=== PATIENT | female | born 1990 | race Caucasian/White ===

== ENCOUNTER 2017-05-21 14:06 | Inpatient (IN) | payer OTHER ==
[2017-05-21] VITALS (28 sets, daily range): BP systolic 105–126; BP diastolic 49–77
[~2017-05-21] VITALS: Ht 167.6 cm; Wt 71.7 kg
--- NOTE | 2017-05-21 14:10 | NUR ---
Dr. Mansfield at bedside. RT at bedside.
--- NOTE | 2017-05-21 14:10 | NUR ---
26 F BIB FRIEND; ACCORDING TO FRIEND PT HAS BEEN TAKING UNKNOWN "MUSCLE RELAXERS" AND UNKNOWN AMOUNT AT UNKNOWN TIME; GCS=1; ER MD GARNICA BY BEDSIDE, RT KADE LOVELACE EMT, SARAN RN, AND MINA FIGUEREDO BY BEDSIDE.
--- NOTE | 2017-05-21 14:10 | NUR ---
Patient to bed 11.
--- NOTE | 2017-05-21 14:15 | NUR ---
CALLED TO BEDSIDE OVERDOSE AND INTUBATION Devin CORNEJO RCP AND MARIJA NESSP ATTENDING
--- NOTE | 2017-05-21 14:17 | NUR ---
DR. LARRY GARNICA ATTENDING PATIENT INTUBATED AT THIS TIME PLACEMENT CONFIRMED BY ED/MD VIA AUSCULTATION AT PULMONARY GEE AND ABDOMEN CXR TO FOLLOW FOR DIAGNOSTIC CONFIRMATION
[2017-05-21] MEDS ORDERED: ETOMIDATE 20 MG/10 ML VIAL IVP ONE (14:25)
[2017-05-21] MEDS ORDERED: NACL 0.9% 1,000 ML IV ONE (14:25)
[2017-05-21] MEDS ORDERED: PROPOFOL 200 MG/20 ML VIAL IV ONE ×3 (14:55→17:50)
[2017-05-21 15:03] LABS: BASOPHILS # (AUTO) 0.3 K/uL (0.00-0.22); BASOPHILS % (AUTO) 2.6 % (0.0-2.0); EOSINOPHILS % (AUTO) 0.2 % (0.0-4.0); HEMATOCRIT 38.3 % (36-48); HEMOGLOBIN 12.6 g/dL (12.0-16.0); LYMPHOCYTES # (AUTO) 0.8 K/uL (2.5-16.5); MEAN CORPUSCULAR HEMOGLOBIN 28 pg (27-31); MEAN CORPUSCULAR HGB CONC 33 g/dL (33-37); MEAN CORPUSCULAR VOLUME 84 fL (80-94); MONOCYTES # (AUTO) 0.2 K/uL (0.8-1.0); MONOCYTES % (AUTO) 1.8 % (1.7-9.3); NEUTROPHILS # (AUTO) 9.6 K/uL (1.8-7.7); NEUTROPHILS % (AUTO) 88.4 % (42.2-75.2); PLATELET COUNT (AUTO) 287 K/uL (140-450); RED BLOOD CELL COUNT(AUTO) 4.56 MIL/uL (4.20-5.40); RED CELL DISTRIBUTION WIDTH 12.4 % (11.6-13.7); WHITE BLOOD COUNT (AUTO) 10.9 K/uL (4.8-10.8)
[2017-05-21 15:17] LABS: ANION GAP 10.4 (8-16); CARBON DIOXIDE 27.6 mmol/L (21-32); CHLORIDE 107 mmol/L (98-107); CREATININE 0.8 mg/dL (0.6-1.3); GFR ARICAN-AMERICAN 112 mL/min (>90); GLUCOSE 148 mg/dL (74-106); SODIUM SERUM 141 mmol/L (136-145); UREA NITROGEN, BLOOD 18 mg/dL (7-18)
[2017-05-21] MEDS ORDERED: PROPOFOL 1000 MG/100 ML PREMIX 100 ML IV ONE ×2 (15:21→17:50)
[2017-05-21 15:24] LABS: ACETAMINOPHEN < 0.5 ug/ml (10-30); ALBUMIN 3.5 g/dL (3.4-5.0); ASPARTATE AMINOTRANSFERASE 26 U/L (15-37); SALICYLATE < 2.8 mg/dL (2.8-20.0); TOTAL BILIRUBIN 0.4 mg/dL (0.0-1.0)
--- NOTE | 2017-05-21 15:25 | NUR ---
RAFI ORO GAVE VERAL ORDER TO OK CHANGE FROM NG TO OG
--- NOTE | 2017-05-21 15:28 | NUR ---
ABG RESULTS GIVEN TO .FIO2 DECREASED TO 35% PER ABG RESULTS.
--- NOTE | 2017-05-21 15:30 | NUR ---
propofol AT 10 MCG/KG/MIN; RASS=-3; NAD; WILL CONTINUE TO MONTIOR
--- NOTE | 2017-05-21 15:35 | NUR ---
RT PAGED TO TRANSPORT PT; PER ESTRADA PT WILL BE AVAIBABLE IN 30 MINS; ER MD GARNICA AWARE
--- NOTE | 2017-05-21 15:53 | NUR ---
PROPOFOL INFUSION WELL; RASS=-3; NAD; WILL CONTINUE TO MONTIOR
--- NOTE | 2017-05-21 16:00 | NUR ---
PROPOFOL INFUSION WELL; RASS=-3; NAD; WILL CONTINUE TO MONTIOR
--- NOTE | 2017-05-21 16:01 | NUR ---
RT PAGED TO TRANSPORT PT; PER ESTRADA PT WILL BE AVAIBABLE IN 30 MINS; ER MD GARNICA AWARE
--- NOTE | 2017-05-21 16:03 | NUR ---
PROPOFOL INFUSION WELL; RASS=-2; NAD; WILL CONTINUE TO MONTIOR
[2017-05-21 16:05] LABS: BARBITURATE, URINE NEG. ng/ml (NEG <=200); BENZODIAZEPINE, URINE NEG. ng/mL (NEG <=200); CANNABINOID, URINE NEG. ng/mL (NEG <=50); COCAINE, URINE NEG. ng/mL (NEG <=300); OPIATE, URINE NEG. ng/mL (NEG <=2000); PHENCYCLIDINE SCREEN,URINE NEG. ng/mL (NEG <=25)
--- NOTE | 2017-05-21 16:15 | NUR ---
PROPOFOL INFUSION WELL; RASS=-2; NAD; WILL CONTINUE TO MONTIOR
--- NOTE | 2017-05-21 16:15 | NUR ---
Note undone in [facility] - 05/21/17 at 180 by GISELLE PROPOFOL INFUSION WELL; RASS=-3; NAD; WILL CONTINUE TO RELLIOR Addendum: 05/21/17 at 180 by GISELLE Amendment undone in [facility] - 05/21/17 at 180 by MEDCE PROPOFOL INFUSION WELL; RASS=-2; NAD; WILL CONTINUE TO RELLIOR
--- NOTE | 2017-05-21 16:16 | NUR ---
XRAY BY BEDSIDE
--- NOTE | 2017-05-21 16:19 | NUR ---
propofol AT 15 MCG/KG/MIN; RASS=-3; NAD; WILL CONTINUE TO MONTIOR
--- NOTE | 2017-05-21 16:20 | NUR ---
OG TUBE REMOVED
--- NOTE | 2017-05-21 16:28 | NUR ---
PATIENT TRANSFERRED TO RADILOGY FOR CT SCAN OF HEAD REMOVED FORM VENTILATOR PLACED ON SUPPLEMENTAL OXYGENT AT 15 LPM VIA AMBU BAG TO PORTEX INLINE SUCTION CATHETER/ENDOTRACHEAL TUBE AMBU BAG DEPRESSED EVERY 6 SECONDS TOLERATED WELL WITHOUT INCIDENT SATURATION 98-100% HR 57-60
--- NOTE | 2017-05-21 16:29 | NUR ---
Patient taken to CT via gurney per tech/RT/pt nurse.
--- NOTE | 2017-05-21 16:38 | NUR ---
PATIENT TRANSFERRED BACK TO ICU-11 SUPPLEMENTAL OXYGEN AT 15LPM TO AMBU BAG VIA PORTEX INLINE SUCTION CATHTER/ENDOTRACHEAL TUBE TOLERATED WELL WITHOUT INCIDENT SATURATION 98-100% HR 58-60
--- NOTE | 2017-05-21 16:38 | NUR ---
Patient back from CT via gurney.
--- NOTE | 2017-05-21 16:40 | NUR ---
OG TUBE REMOVED; ATTEMPTED TO PULL BACK DUE TO RESULTS OF XRAY PLACEMENT CONFIRMATION; PT VOMITTED APPROX 30 CC OF BROWNISH EMSIS; ER MD AWARE AND NOTIFIED
--- NOTE | 2017-05-21 17:02 | NUR ---
SEDATED TOLERATING VENTILATORY SUPPORT WITHOUT INCIDENT GOOD CHEAT RISE AIRWAY PATENT
[2017-05-21] MEDS ORDERED: INTUBATION KIT MC ONE (17:20)
--- NOTE | 2017-05-21 17:30 | NUR ---
PROPOFOL INFUSION WELL; RASS=-3; NAD; WILL CONTINUE TO MONTIOR
--- NOTE | 2017-05-21 17:45 | NUR ---
Patient will be admitted to [facility]. Admited to ICU. Will go to room ICU 1. Belongings list completed. Report to Mili FIGUEREDO.
--- NOTE | 2017-05-21 18:30 | NUR ---
PT RECEIVED FRO ER WITH ETT IN PLACE WITH VENTILATOR SETTING AC MODE FIO2 35 RR 16 TV 500 PEEP 5. SKIN INTACT, WARM AND DRY TO TOUCH. PUPILS SLIGHTLY REACTIVE TO LIGHT. LUNGS SOUND CLEAR ON AUSCULTATION. REGULAR APICAL PULSE. PERIPHERAL LINE ON LEFT AND RIGHT AC INTACT. PROPOFOL RUNNING AT 20 MCG/KG/MIN VIA IV PUMP. ABDOMEN ROUND, SOFT AND NONTENDER. HYPOACTIVE BOWEL SOUNDS ON AUSCULTATION. BURGOS'S CATH IN PLACE DRAINING YELLOW URINE VIA GRAVITY. CONTINUE TO MONITOR.
--- NOTE | 2017-05-21 18:30 | NUR ---
TRANSFERRED PT TO ICU 1 WITH NO INCIDENCE WITH MINA FIGUEREDO
[2017-05-21] MEDS ORDERED: LORazepam 2 MG/ML VIAL IVP PRN (19:00)
[2017-05-21] MEDS ORDERED: ONDANSETRON 4 MG/2 ML VIAL IVP PRN (19:00)
[2017-05-21] MEDS ORDERED: HYDROmorphone 1 MG/ML AMP IVP PRN (19:00)
[2017-05-21] MEDS ORDERED: PROPOFOL 200 MG/20 ML VIAL IV SCH (19:00)
[2017-05-21] MEDS ORDERED: ALBUTEROL 0.083% 2.5 MG/3 ML NEBU INH PRN (19:00)
--- NOTE | 2017-05-21 19:00 | NUR ---
REPORT RECEIVED FROM BEA PEÑA. RECEIVED PT WITH PROPOFOL DRIP AT 20MCG/KG/MIN. AFEBRILE. SINUS BRADYCARDIA ON MONITOR. ETT TO VENT. AC/VC FIO2 35, RR 16, TV 500, AND PEEP 5. PERIPHERAL IV RIGHT AC 20G AND LEFT AC 20G. BOTH FLUSHED AND PATENT. BURGOS CATHETER IN PLACE DRAINING BY GRAVITY. URINE YELLOW AND CLEAR. NO ODOR NOTED. NO GRIMACING OR GUARDING NOTED. HOB KEPT AT 30 DEGREES. ALL SAFETY PRECAUTIONS IN PLACE. BED AT LOW POSITION. WILL CONTINUE TO MONITOR PT.
--- NOTE | 2017-05-21 19:20 | NUR ---
NO CHANGE IN LOC. GAVE REPORT TO ENVELOPE STUFFER FOR CONTINUITY OF CARE.
[2017-05-21] MEDS ORDERED: MIDAZOLAM 2 MG/2 ML VIAL IV PRN (19:55)
[2017-05-21] MEDS: DEXT 5% / NACL 0.45% 1,000 ML IV SCH (20:09)
--- NOTE | 2017-05-21 20:20 | NUR ---
RECEIVED NEW ORDER FROM DR. MCCALLUM. WILL FOLLOW UP.
--- NOTE | 2017-05-21 20:30 | NUR ---
OGT INSERTED. 14FR TO DRAIN BY GRAVITY PER MD ORDER. XRAY TO CONFIRM PLACEMENT ORDERED.
--- NOTE | 2017-05-21 20:31 | NUR ---
PT STABLE ON VENT SUPPORT AT DOCUMENTED SETTINGS, SXN'D SCANT CLEAR SECRETIONS, NO RESP DISTRESS OR SOB NOTED, 7.5 ETT SECURED AT 21 CM AT THE LIPS, CONFIRMED PLACEMENT BY XRAY PER DR CHOWDHURY, ALARMS SET AND AUDIBLE, VENT PLUGGED INTO RED OUTLET, BAG MASK AT BEDSIDE, WILL CONTINUE TO MONITOR.
--- NOTE | 2017-05-21 21:00 | NUR ---
XRAY TAKEN. WILL FOLLOW-UP.
--- NOTE | 2017-05-21 22:46 | NUR ---
SPOKE TO DR. MCCALLUM AND NOTIFIED OGT PLACEMENT RESULT. DR. MCCALLUM SAID TO DO ANOTHER XRAY IN AM TO RECHECK OGT PLACEMENT. 40ML OF DARK TEA-COLORED GASTRIC CONTENT ASPIRATED, DR. MCCALLUM AWARE. DR. MCCALLUM SAID TO CONTINUE OGT DRAIN TO GRAVITY. WILL CONTINUE TO MONITOR. Addendum: 05/21/17 at 2253 by Raghu Overton RN OGT ADVANCE FURTHER. OGT PLACEMENT TO BE CONFIRMED IN AM XRAY ORDERED.
[2017-05-22] VITALS (48 sets, daily range): BP systolic 93–136; BP diastolic 55–80
--- NOTE | 2017-05-22 00:37 | NUR ---
PT TURNED AND REPOSITIONED. TOLERATED WELL. OGT DRAINING TEA-COLORED GASTRIC CONTENT. D5W 0.45 NS RUNNING AT 100ML/HR TO RIGHT AC AND PROPOFOL DRIP TO LEFT AC. VITAL SIGNS STABLE AT THIS TIME. PUPILS 4MM BILATERALLY. EQUAL AND REACTIVE TO LIGHT. ALL SAFETY PRECAUTIONS IN PLACE. WILL CALL LIGHT WITHIN REACH. WILL CONTINUE TO MONITOR PT.
[2017-05-22] MEDS: PROPOFOL 1000 MG/100 ML PREMIX 100 ML IV PRN ×2 (00:59→05:11)
--- NOTE | 2017-05-22 02:49 | NUR ---
VS STABLE AT THIS TIME. NO CHANGE IN CONDITION NOTED. NO SIGNS OF DISTRESS NOTED. RASS -4. HOB ELEVATED AT 30 DEGREES. BURGOS CATHETER DRAINING WELL. ON PROPOFOL DRIP. D5W 0.45 NS RUNNING AT 100ML/HR. ALL SAFETY PRECAUTIONS IN PLACE. BED AT LOW POSITION. CALL LIGHT WITHIN REACH. WILL CONTINUE TO MONITOR PT.
--- NOTE | 2017-05-22 04:30 | NUR ---
MORNING CARE PROVIDED TO PT. LINENS CHANGED. PT TOLERATED WELL. NO SIGNS OF DISTRESS NOTED. RASS -3. PROPOFOL TITRATED TO MAINTAIN GOAL RASS -4. HOB AT 30 DEGREES. ALL SAFETY PRECAUTIONS IN PLACE. CALL LIGHT WITHIN REACH. WILL CONTINUE TO MONITOR PT.
[2017-05-22] MEDS: DEXT 5% / NACL 0.45% 1,000 ML IV SCH ×2 (05:12→14:51)
[2017-05-22 05:13] LABS: BASOPHILS # (AUTO) 0.2 K/uL (0.00-0.22); BASOPHILS % (AUTO) 1.3 % (0.0-2.0); EOSINOPHILS # (AUTO) 0.1 K/uL (0-0.4); EOSINOPHILS % (AUTO) 0.7 % (0.0-4.0); HEMATOCRIT 38.9 % (36-48); HEMOGLOBIN 12.7 g/dL (12.0-16.0); LYMPHOCYTES # (AUTO) 1.6 K/uL (2.5-16.5); LYMPHOCYTES % (AUTO) 12.8 % (20.5-51.1); MEAN CORPUSCULAR HEMOGLOBIN 27 pg (27-31); MEAN CORPUSCULAR HGB CONC 33 g/dL (33-37); MEAN CORPUSCULAR VOLUME 83 fL (80-94); MONOCYTES # (AUTO) 0.8 K/uL (0.8-1.0); MONOCYTES % (AUTO) 6.2 % (1.7-9.3); NEUTROPHILS # (AUTO) 9.8 K/uL (1.8-7.7); PLATELET COUNT (AUTO) 338 K/uL (140-450); RED BLOOD CELL COUNT(AUTO) 4.69 MIL/uL (4.20-5.40); RED CELL DISTRIBUTION WIDTH 12.2 % (11.6-13.7); WHITE BLOOD COUNT (AUTO) 12.5 K/uL (4.8-10.8)
--- NOTE | 2017-05-22 05:22 | NUR ---
FIO2 DECREASED TO 28% BY RT. VS STABLE AT THIS TIME. NO SIGNS OF DISTRESS NOTED. NO CHANGE IN CONDITION. WILL CONTINUE TO MONITOR.
--- NOTE | 2017-05-22 06:25 | NUR ---
REC'D PT ON CARESCAPE VENT SETTINGS AC 16 VT 500 PEEP 5 FIO2 35% ALARMS ON AND FUNCTIONING PROPERLY, AMBU BAG AT SIDE OF VENT AND VENTILATOR IS PLUGGED INTO RED OUTLET, SXN PT SMALL AMT OF CLEAR SECRETIONS, B\S ARE CLEAR BILATERALLY, PT ORALLY INTUBATED WITH 7.5 ET TUBE SECURED WITH ANCHOR FAST AT 21 CM AND CUFF PRESSURE IS 21 CM H20 AND SKIN INTEGRITY IS INTACT
--- NOTE | 2017-05-22 06:35 | NUR ---
X-RAY TAKEN AT BEDSIDE. WILL FOLLOW-UP WITH RESULTS.
--- NOTE | 2017-05-22 07:10 | NUR ---
REPORT GIVEN TO BEA GIBBONS FOR CONTINUITY OF CARE. PT ON STABLE CONDITION.
--- NOTE | 2017-05-22 07:10 | NUR ---
RECEIVED A REPORT FROM SIGNAL OPERATOR LINGUIST RN. PT SEDATED AND UNRESPONSIVE TO VOICE. HER EYES CLOSED AND APPLIED BILATERAL MITTENS FOR SAFETY PRECAUTION. FLACC 0 AND NO S/SX OF RESPIRATORY DISTRESS NOTED. ETT TO VENT AND SETTING AT FiO2 28, TV 500, RR 16, PEEP 5. ORAL TUBE IN PLACE FOR INTERMITTENT SUCTIONING. SKIN WARM TO TOUCH. ON CONTINUOUS DRIP WITH PROPOFOL ORDERED PER PROTOCOL. PERIPHERAL IV LINE TO RT AC AND LT AC, PATENT AND INTACT. BURGOS CATHETER DRAINING CLEAR YELLOW URINE. BED IN LOW POSITION, CALL LIGHT WITHIN REACH. WILL CONTINUE TO MONITOR.
--- NOTE | 2017-05-22 08:01 | NUR ---
PAGED DR. PHILLIPS REGARDING CXR RESULT AND WAITING FOR CALLBACK
--- NOTE | 2017-05-22 08:05 | NUR ---
RECEIVED CALLBACK FROM DR. PHILLIPS AND CXR RESULT WAS NOTIFIED. PER DR. PHILLIPS, STOP PROPOFOL NOW, DO NOT TITRATE AND IF PT IS STABLE AND NOT AGITATED, IT IS OKAY TO WEANING VENTILATOR. WILL FOLLOW UP ON ORDERS
--- NOTE | 2017-05-22 08:07 | NUR ---
STOP PROPOFOL ORDERED AND RT WAS NOTIFIED.
--- NOTE | 2017-05-22 08:36 | NUR ---
PT IS AWAKE AND VERY AGITATED WITHOUT PROPOFOL. PAGED DR. PHILLIPS AND WAITING FOR CALLBACK.
--- NOTE | 2017-05-22 08:43 | NUR ---
DR. PHILLIPS CALLED BACK AND WAS NOTIFIED OF PT'S CONDITION. PER DR. PHILLIPS, CONTINUE PROPOFOL NOW AND WILL FOLLOW UP FOR THE WEANING LATER.
[2017-05-22] MEDS: ENOXAPARIN 40 MG/0.4 ML SYR SUBQ SCH (08:56)
[2017-05-22] MEDS: PANTOPRAZOLE 40 MG INJ VIAL IVP SCH (08:57)
--- NOTE | 2017-05-22 09:00 | NUR ---
STOP PROPOFOL AT THIS TIME. WILL CONTINUE TO MONITOR
--- NOTE | 2017-05-22 09:06 | NUR ---
VENT CHECK, NO SXN REQUIRED AT THIS TIME, DR. PHILLIPS ORDER TO HAVE PT EXTUBATE ONCE VACATION SEDATION IS DONE, PT IS OFF DIPRIVAN WAITING FOR PT TO WAKE UP
--- NOTE | 2017-05-22 09:22 | NUR ---
PT EXTUBATED AND PLACED ON 3LNC
--- NOTE | 2017-05-22 09:28 | NUR ---
PT TOLERATED MEDICATIONS WELL. CALM AND ABLE TO VERBALIZE NEEDS, NO AGITATION AT THIS TIME. NO S/SX OF ACUTE RESPIRATORY DISTRESS AND ON O2 3L/M VIA N/C. PT'S MOTHER AND SISTER AT BEDSIDE. WILL CONTINUE TO MONITOR
--- NOTE | 2017-05-22 09:50 | NUR ---
DR. PHILLIPS IN TO SEE PT. WILL FOLLOW UP ON ORDERS
--- NOTE | 2017-05-22 10:06 | NUR ---
PATIENT HAS BEEN SCREENED AND CATEGORIZED MODERATE NUTRITION RISK. PATIENT WILL BE SEEN WITHIN 3-5 DAYS OF ADMISSION. 05/24/17-05/26/[address] Addendum: 05/22/17 at [address] D/T FNS CONSULT RECEIVED ON 05/22/17 PT HAS BEEN RESCREENED AND RECATEGORIZED HIGH NUTRITION RISK. PT WILL BE SEEN WITHIN 1-2 DAYS OF ADMISSION 05/22/17 - 05/23/[address]
--- NOTE | 2017-05-22 11:24 | NUR ---
DR. AMBRIZ IN TO SEE PT. WILL FOLLOW UP ON ORDERS
--- NOTE | 2017-05-22 13:00 | NUR ---
PT ALERT AND ABLE TO FOLLOW SIMPLE COMMANDS WITH SLOW RESPOND AND VERBALIZES NEEDS. DENIES ANY PAIN OR DISCOMFORT AT THIS TIME. WILL CONTINUE TO MONITOR.
--- NOTE | 2017-05-22 13:23 | NUR ---
CM NOTE INITIAL REVIEW FAXED TO [facility] [phone] JACK HARTLEY PH# [phone] JACK TRAN PH# [phone] AND TO [facility] [phone] SILVIO [phone]
[2017-05-22] MEDS ORDERED: LORazepam 2 MG/ML VIAL IVP PRN (14:40)
--- NOTE | 2017-05-22 15:13 | NUR ---
PHYSICAL THERAPIST IN TO SEE PT AND PT AMBULATES IN THE UNIT WITH ASSIST.
--- NOTE | 2017-05-22 15:45 | NUR ---
DR. RODRIGUEZ IN TO SEE PT FOR PSYCH CONSULT. WILL FOLLOW UP ON ORDERS.
--- NOTE | 2017-05-22 16:25 | NUR ---
PAGED DR. PHILLIPS REGARDING PSYCH CONSULT AND NEUROLOGY CONSULT REPORT. WAITING FOR CALLBACK.
--- NOTE | 2017-05-22 16:45 | NUR ---
DR. PHILLIPS CALLED BACK AND WAS INFORMED OF PSYCH AND NEURO CONSULTATION REPORT. PER DR. PHILLIPS, IT IS OK TO DC BURGOS CATHETER AND GIVE INFLUENZA VACCINE WHEN PT DISCHARGE HOME. WILL FOLLOW UP ON ORDERS.
[2017-05-22] MEDS ORDERED: MIDAZOLAM 2 MG/2 ML VIAL IVP PRN (17:15)
--- NOTE | 2017-05-22 17:26 | NUR ---
REMOVED BURGOS CATHETER AND NO BLEEDING AT THIS TIME. WILL CONTINUE TO MONITOR
--- NOTE | 2017-05-22 17:47 | NUR ---
PT URINATED IN BED. WILL CONTINUE TO MONITOR. FAMILY AT BEDSIDE.
--- NOTE | 2017-05-22 19:10 | NUR ---
PT WILL BE TRANSFERRED TO [facility] ROOM 104A AND REPORT GIVEN TO BEA BROWN
[2017-05-22] MEDS ORDERED: INFLUENZA VIRUS VACCINE QUAD 0.5 ML SYR IMVAC SCH (19:25)
--- NOTE | 2017-05-22 20:00 | NUR ---
RECEIVED REPORT FROM YISEL GIBBONS RN. PATIENT TRANSFERRED IN FROM ICU. INITIAL ASSESSMENT COMPLETED. MOTHER AT BEDSIDE. PT OBEYS COMMANDS, AMBULATE WITH ASSIST. ATTACHED TO TELE MONITORING. IV ACCESS AT RIGHT FOREARM 22G, IVF INFUSING WELL. O2@ 3LPM VIA NASAL CANNULA AT THIS TIME. NO SIGNS OF DISTRESS. SCDS IN PLACE. BED IN LOW POSITION. SAFETY MEASURE ENSURE. CALL LIGHT WITHIN REACH. WILL CONTINUE TO MONITOR.
--- NOTE | 2017-05-22 22:55 | NUR ---
TRANSFER OF CARE TO BEA CARABALLO. REPORT GIVEN. PT ON STABLE CONDITION AT THIS TIME.
--- NOTE | 2017-05-22 23:00 | NUR ---
RECEIVED REPORT OF STABLE PT.NO S/S OF ANY DISTRESS NOTED AT THIS TIME.CALL LIGHT IN REACH.WILL CONTINUE MONITORING.
[2017-05-23] VITALS: BP 110/65
[2017-05-23] MEDS: DEXT 5% / NACL 0.45% 1,000 ML IV SCH (03:41)
[2017-05-23 04:00] VITALS: BP 112/60
--- NOTE | 2017-05-23 04:00 | NUR ---
SLEEPING.VS STABLE.HR IS SR/SA.NO ANY DISTRESS NOTED.
[2017-05-23 07:20] LABS: BASOPHILS # (AUTO) 0.4 K/uL (0.00-0.22); EOSINOPHILS # (AUTO) 0.1 K/uL (0-0.4); WHITE BLOOD COUNT (AUTO) 7.3 K/uL (4.8-10.8)
[2017-05-23 07:22] LABS: BASOPHILS % (AUTO) 4.9 % (0.0-2.0); EOSINOPHILS % (AUTO) 0.7 % (0.0-4.0); HEMATOCRIT 36.7 % (36-48); HEMOGLOBIN 12.5 g/dL (12.0-16.0); LYMPHOCYTES # (AUTO) 1.6 K/uL (2.5-16.5); LYMPHOCYTES % (AUTO) 21.6 % (20.5-51.1); MEAN CORPUSCULAR HEMOGLOBIN 29 pg (27-31); MEAN CORPUSCULAR HGB CONC 34 g/dL (33-37); MEAN CORPUSCULAR VOLUME 85 fL (80-94); MONOCYTES # (AUTO) 0.7 K/uL (0.8-1.0); MONOCYTES % (AUTO) 9.5 % (1.7-9.3); NEUTROPHILS # (AUTO) 4.5 K/uL (1.8-7.7); NEUTROPHILS % (AUTO) 63.3 % (42.2-75.2); PLATELET COUNT (AUTO) 313 K/uL (140-450); RED BLOOD CELL COUNT(AUTO) 4.34 MIL/uL (4.20-5.40); RED CELL DISTRIBUTION WIDTH 12.6 % (11.6-13.7)
[2017-05-23 07:28] LABS: ANION GAP 12.4 (8-16); CARBON DIOXIDE 26.7 mmol/L (21-32); CREATININE 0.6 mg/dL (0.6-1.3); POTASSIUM 3.1 mmol/L (3.5-5.1)
--- NOTE | 2017-05-23 07:30 | NUR ---
RECEIVED PATIENT REPORT AT BEDSIDE. PATIENT ASLEEP BUT EASILY AROUSABLE. NO S/S OF DISTRESS NOTED. PATIENT ON ROOM AIR. NO C/O PAIN AT THIS TIME. PATIENT ON TELE MONITORING. BED LOWERED WITH CALL LIGHT WITHIN REACH. WILL CONTINUE TO MONITOR
--- NOTE | 2017-05-23 07:37 | NUR ---
ENDORSED CARE TO AM RN.PT'S CONDITION IS STABLE.IVF IS INFUSING WELL.
[2017-05-23 08:00] VITALS: BP 108/68
[2017-05-23] MEDS: PANTOPRAZOLE 40 MG INJ VIAL IVP SCH (09:04)
[2017-05-23] MEDS: ENOXAPARIN 40 MG/0.4 ML SYR SUBQ SCH (09:10)
[2017-05-23] MEDS ORDERED: POTASSIUM CHLORIDE 10 MEQ TABER PO SCH (11:42)
[2017-05-23 12:00] VITALS: BP 113/65
--- NOTE | 2017-05-23 13:20 | NUR ---
PATIENT DISCHARGED TO HOME. DISCHARGE INSTRUCTIONS GIVEN. PATIENT VERBALIZED UNDERSTANDING. IV LINE DISCONTINUED. TELE LEADS TAKEN OFF. PATIENT LEFT WITH ALL HER BELONGINGS AND DISCHARGE PAPERS. PATIENT LEFT IN STABLE CONDITION
--- NOTE | 2017-05-23 14:55 | NUR ---
CM NOTE CONCURRENT REVIEW FAXED TO [facility] [phone] JACK HARTLEY PH# [phone] JACK TRAN PH# [phone] AND TO [facility] [phone] SILVIO [phone]
== END 2017-05-23 13:20 | disposition home or self-care (01) | DRG 133 ==
LOC: MED 14:06 → EDUNIT# 14:06 → MIC 17:25 → MTU 05-22 19:55
PROVIDERS: ADMIT Internal Medicine Pulmonary Disease; ATTEND Internal Medicine Pulmonary Disease
PROC: 0BH17EZ Insertion of Endotracheal Airway into Trachea, Via Natural or Artificial Opening (ICD-10-PCS; principal; 2017-05-21)
PROC: 5A1935Z Respiratory Ventilation, Less than 24 Consecutive Hours (ICD-10-PCS; 2017-05-21)
PROC: 5A1935Z Respiratory Ventilation, Less than 24 Consecutive Hours (ICD-10-PCS; 2017-05-21)
PROC: 5A1935Z Respiratory Ventilation, Less than 24 Consecutive Hours (ICD-10-PCS; 2017-05-21)
PROC: 3E0234Z Introduction of Serum, Toxoid and Vaccine into Muscle, Percutaneous Approach (ICD-10-PCS; 2017-05-23)
DX: J96.01 Acute respiratory failure with hypoxia (principal); G93.41 Metabolic encephalopathy; G89.29 Other chronic pain; M54.9 Dorsalgia, unspecified; T50.905A Adverse effect of unspecified drugs, medicaments and biological substances, initial encounter; Y92.89 Other specified places as the place of occurrence of the external cause; Z23 Encounter for immunization
CPT/HCPCS: 31500; 36415; 36600; 70450; 71010; 80048; 80053; 80305; 82803; 83735; 85025; 87081; 87086; 90658; 94003; 96360; 96361; 99291; C9113; G0480; G0482; J1650; J2704; J7030; Q0092